=== PATIENT | male | born 1945 | race Caucasian/White ===

== ENCOUNTER 2020-10-05 20:12 | Emergency (ER) | payer MEDICARE, OTHER, SELFPAY ==
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
[2020-10-05 20:35] VITALS: BP 144/92; PULSE 81; RESP 16; TEMP 35.9; O2SAT 96
[2020-10-05] MEDS: ACETAMINOPHEN 325 MG TABLET 650 MG PO (21:15)
[2020-10-05] MEDS: TETANUS,DIPHTHERIA,AC PERTUSSIS ADULT (0.5 ML) BOOSTRIX IM (21:17)
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
[2020-10-05 22:15] VITALS: BP 158/86; PULSE 67; RESP 18; O2SAT 99
== END 2020-10-05 22:50 | disposition home or self-care (01) ==
PROVIDERS: Emergency Provider Emergency Medicine
DX: S01.81XA Laceration without foreign body of other part of head, initial encounter (principal); S16.1XXA Strain of muscle, fascia and tendon at neck level, initial encounter; Y04.2XXA Assault by strike against or bumped into by another person, initial encounter; Z23 Encounter for immunization
CPT/HCPCS: 12011; 70450; 72125; 90471; 90715; 99284; A9270; L0140

== ENCOUNTER 2022-09-05 09:20 | Emergency (ER) | payer MEDICARE, OTHER, SELFPAY ==
[2022-09-05] VITALS (24 sets, daily range): BP systolic 124–149; BP diastolic 78–97; PULSE 57–84; RESP 10–21; TEMP 36.6–36.8; O2SAT 93–100
--- NOTE | ~2022-09-05 | XR_ITS ---
EXAMINATION: XR chest 2V DATE: 09/05/2022 09:55 INDICATION: Chest tingling. TECHNIQUE: Frontal and lateral views of the chest were obtained. COMPARISON: Chest 2 views 11/06/2018 FINDINGS: There is worsened chronic elevation of right hemidiaphragm. There is mild atelectasis at ri ght lung base. No pleural effusion or pneumothorax. The heart size is normal. IMPRESSION: 1. Worsened chronic elevation of right hemidiaphragm with mild atelectasis at right lung base. Reviewed, dictated and finalized at location A. IMPRESSION: 1. Worsened chronic elevation of right hemidiaphragm with mild atelectasis at r ight lung base.
--- NOTE | 2022-09-05 09:24 | ECG_ITS ---
Measurements Intervals [place] Rate: 69 P: 41 TN: 147 QRS: 2 QRSD: 91 T: 29 QT: 380 QTc: 408 Interpretive Statements SINUS RHYTHM NORMAL ECG NO PREVIOUS ECG AVAILABLE FOR COMPARISON Electronically Signed On 09-05-2022 9:31:55 CDT by Cali Lopes D.O.
[2022-09-05 09:40] LABS: Basophils Percent Auto 0.9 % (0.2-1.2); Eosinophils Absolute Auto 0.1 K/mm3 (0-0.3); Eosinophils Percent Auto 2.9 % (0-4.4); Hematocrit 43.1 % (42.0-52.0); Hemoglobin 14.8 g/dL (14.0-18.0); Immature Granulocyte Absolute 0.01 K/mm3 (0.00-0.031); Immature Granulocyte Percent A 0.3 % (0-0.5); Lymphocytes Absolute Auto 0.93 K/mm3 (0.9-3.2); Mean Corpuscular HGB Conc 34.3 g/dl (32-36); Mean Corpuscular Hemoglobin 30.6 pg (26-34); Mean Platelet Volume 8.7 fl (7.4-10.4); Monocytes Absolute Auto 0.4 K/mm3 (0.1-0.6); Monocytes Percent Auto 10.7 % (2.6-8.5); Neutrophils Percent Auto 58.2 % (45.5-73.1); Platelet Count Result 135 k/mm3 (150-375); Red Blood Count 4.84 M/mm3 (4.6-6.20); White Blood Count 3.5 K/mm3 (4.5-10.0)
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
[2022-09-05 09:51] LABS: INR 1.1; Prothrombin Time 13.5 Seconds (11.1-14.7)
[2022-09-05 09:52] LABS: Partial Thromboplastin Time 26.2 SECONDS (22.3-36.8)
[2022-09-05 09:53] LABS: Alanine Aminotransferase 22 U/L (6-50); Albumin Level 4.5 g/dL (3.5-5.1); Alkaline Phosphatase 58 U/L (38-126); Anion Gap 12 mmol/L (8-16); Aspartate Amino Transferase 33 U/L (17-59); Bilirubin,Total 0.7 mg/dL (0.2-1.3); Blood Urea Nitrogen 21 mg/dL (9-20); Calcium 8.7 mg/dL (8.4-10.2); Carbon Dioxide 28 mmol/L (22-30); Chloride 97 mmol/L (98-107); Estimated CRCL calculation 43 ml/min; Estimated Glomerular Filt Rate 54; Glucose 100 mg/dL (65-110); Lipase 148 U/L (23-300); Sodium 137 mmol/L (137-145)
[2022-09-05 10:05] LABS: Troponin I < 0.012 ng/mL (0.000-0.034)
[2022-09-05 12:58] LABS: Troponin I < 0.012 ng/mL (0.000-0.034)
--- NOTE | 2022-09-05 13:12 | ECG_ITS ---
Measurements Intervals [place] Rate: 60 P: 57 DE: 154 QRS: 47 QRSD: 93 T: 56 QT: 399 QTc: 400 Interpretive Statements SINUS RHYTHM NORMAL ECG COMPARED TO ECG 09/05/2022 09:29:10 NO SIGNIFICANT CHANGES Electronically Signed On 09-05-2022 15:13:51 CDT by Cali Lopes D.O.
[2022-09-05 16:00] LABS: Troponin I < 0.012 ng/mL (0.000-0.034)
== END 2022-09-05 16:09 | disposition home or self-care (01) ==
PROVIDERS: Emergency Provider Emergency Medicine
DX: R20.2 Paresthesia of skin (principal); R07.89 Other chest pain; I10 Essential (primary) hypertension; E78.5 Hyperlipidemia, unspecified; K21.9 Gastro-esophageal reflux disease without esophagitis
CPT/HCPCS: 36415; 71046; 80053; 83690; 84484; 85025; 85610; 85730; 93005; 99284

== ENCOUNTER 2023-09-10 11:45 | Emergency (ER) | payer MEDICARE, OTHER, SELFPAY ==
[2023-09-10 11:55] VITALS: BP 149/84; PULSE 84; RESP 18; TEMP 36.6; O2SAT 96
--- NOTE | 2023-09-10 12:18 | ED.EAR ---
HPI - Ear Problem General Chief complaint: Ear Stated complaint: rt ear discomfort Time Seen by Provider: 09/10/23 12:03 Source: patient and RN notes reviewed Mode of arrival: ambulatory Limitations: no limitations History of Present Illness HPI Narrative: Patient presents today complaining of right ear clogging times 10 days. Denies any pain or drainage. He has tried peroxide and flushing of the ear without success. Related Data Home Medications Medication Instructions Recorded Confirmed aspirin 81 mg tablet,delayed 81 mg PO DAILY 09/10/23 09/10/23 release atorvastatin 40 mg tablet 40 mg PO DAILY 09/10/23 09/10/23 cetirizine 10 mg tablet 10 mg PO DAILY 09/10/23 09/10/23 hydrochlorothiazide 12.5 mg tablet 12.5 mg PO DAILY 09/10/23 09/10/23 lisinopril 5 mg tablet 5 mg PO DAILY 09/10/23 09/10/23 montelukast 10 mg tablet 10 mg PO HS 09/10/23 09/10/23 omeprazole 20 mg capsule,delayed 20 mg PO DAILY 09/10/23 09/10/23 release terbinafine HCl 250 mg tablet 250 mg PO DAILY 09/10/23 09/10/23 Allergies Allergy/AdvReac Type Severity Reaction Status Date / Time No Known Allergies Allergy Verified 09/10/23 11:47 Review of Systems Review of Systems: CONSTITUTIONAL: Denies body aches, fever, chills, or sweats. EYES: Denies visual changes, redness, or discharge. ENT: Denies rhinorrhea, congestion, sore throat, or otalgia.+ right ear clogging and muffled hearing CARDIOVASCULAR: Denies chest pain, palpitations, or edema. RESPIRATORY: Denies cough or dyspnea. GASTROINTESTINAL: Denies abdominal pain, nausea, vomiting, or diarrhea. GENITOURINARY: Denies dysuria or hematuria. SKIN: Denies rash, itching, or wounds. MUSCULOSKELETAL: Denies back pain, joint pain, or myalgia. NEUROLOGIC: Denies headache, numbness, tingling, or weakness. PSYCH: Denies depression or anxiety. [facility] Past Medical History Medical History GERD (gastroesophageal reflux disease) HLD (hyperlipidemia) HTN (hypertension) Surgical History Surgical History History of surgical removal of skin lesion Social History Social History Smoking status: Never smoker Gender identity (if verbalized by the patient): Male Comments At time of signature, I have reviewed and agree with nursing past medical, surgical, social and family history unless otherwise noted. Please see nursing chart for further information. There is no relevant family history pertinent to the presenting complaint Exam Narrative: GENERAL: Well-appearing, well-nourished, and in no acute distress. HEAD: Normocephalic, atraumatic. EYES: EOMI. No redness or drainage. Conjunctivae normal. ENT: Mucous membranes pink and moist. Nares clear. No rhinorrhea. Right ear cerumen impaction. NECK: Normal AROM. CHEST: No respiratory distress. EXTREMITIES: Normal range of motion. No edema. SKIN: Warm, dry, no rash. Capillary refill normal. Normal skin turgor. NEURO: No focal deficits. Alert and oriented x3. Gait steady. PSYCH: Normal affect. No signs of depression or anxiety. Course Course Level of Care: Express Care Visit Vital Signs Vital signs: Vital Signs Temperature 97.9 F 09/10/23 11:55 Pulse Rate 84 09/10/23 11:55 Respiratory Rate 18 09/10/23 11:55 Blood Pressure 149/84 H 09/10/23 11:55 Pulse Oximetry 96 09/10/23 11:55 Oxygen Delivery Room Air 09/10/23 11:55 Temperature 97.9 F 09/10/23 11:55 Pulse Rate 84 09/10/23 11:55 Respiratory Rate 18 09/10/23 11:55 Blood Pressure 149/84 H 09/10/23 11:55 Pulse Oximetry 96 09/10/23 11:55 Oxygen Delivery Room Air 09/10/23 11:55 Reviewed Procedures Ear Wax Removal Right Ear: Ear Wax Removal Date: 09/10/23 Ear Wax Removal Time: 12:20 Results: Re-examined: removal reattempted (Unsuc
== END 2023-09-10 12:26 | disposition home or self-care (01) ==
PROVIDERS: Emergency Provider Nurse Practitioner
DX: H61.21 Impacted cerumen, right ear (principal); K21.9 Gastro-esophageal reflux disease without esophagitis; E78.5 Hyperlipidemia, unspecified; I10 Essential (primary) hypertension; Z79.82 Long term (current) use of aspirin
CPT/HCPCS: 69209; 99212; A9270; G0463

== ENCOUNTER → 2023-09-10 13:48 | Outpatient (CLI) | payer MEDICARE, OTHER, SELFPAY ==
--- NOTE | ~2023-09-10 | MR_ITS ---
MRI of the left knee Clinical history: Pain Technique: Coronal proton density and proton density-weighted images, sagittal proton-density and T2 fat-sat images, and axial proton-density fat-saturated images were acquired. Findings: Anterior and posterior cruciate ligament are intact. Medial collateral ligament and the lat eral collateral ligament complex are intact. Popliteus tendon is intact. There is horizontal/oblique tear of the posterior horn medial meniscus with additional probable verti catie tear component of the peripheral posterior horn. No definite lateral meniscal tear seen. Articular cartilage is well preserved throughout the knee. Bone marrow signals are unremarkable. Extensor mechanism is intact. No significant joint effusion or Loredo's cyst. Impression: Horizontal and vertical tears involving the posterior horn of the medial meniscus. Reviewed, dictated and finalized at location M. DRIER Impression: Horizontal and vertical tears involving the posterior horn of the medial menisc us.
== END ==
DX: S83.242A Other tear of medial meniscus, current injury, left knee, initial encounter (principal); X58.XXXA Exposure to other specified factors, initial encounter
CPT/HCPCS: 73721

== ENCOUNTER 2024-11-04 12:05 | Emergency (ER) | payer MEDICARE, OTHER, SELFPAY ==
--- NOTE | ~2024-11-04 | XR_ITS ---
Clinical Indication: Cough, fever PA and lateral views of the chest: Comparison: 09/05/2022 Findings: There is probable right basilar atelectasis. There is hazy left basilar airspace disease.. Cardiomediastinal silhouette is within normal limits. Bones and soft tissues are unremarkable. Impression: Hazy left basilar airspace disease, nonspecific. Probable right basilar atelectasis or scarring. Reviewed, dictated and finalized at location . [facility] Impression: Hazy left basilar airspace disease, nonspecific. Probable right basilar atelectasis or scarring.
[2024-11-04 12:25] VITALS: BP 134/82; PULSE 90; RESP 18; TEMP 37.1; O2SAT 98
--- NOTE | 2024-11-04 12:54 | ED.URI ---
HPI - URI/Sore Throat General Chief Complaint: Upper Respiratory Infection Stated Complaint: flu like symptoms Time Seen by Provider: 11/04/24 12:59 Source: patient, RN notes reviewed and old records reviewed Mode of arrival: ambulatory Limitations: no limitations History of Present Illness HPI Narrative: 79-year-old male presents to the [facility] with complaints flu-like symptoms. Patient reports fevers, chills for over 1 week. Symptoms are worse at night, dry cough at night. In the morning he states he feels okay, has had headaches on and off. Has been taking aspirin, Tylenol as well as NyQuil for his cough. Treatments prior to arrival: acetaminophen, aspirin and cold medicine Related Data Home Medications ?Medication ?Instructions ?Recorded ?Confirmed ?Last Taken ?Type aspirin 81 mg tablet,delayed 81 mg PO DAILY 09/10/23 11/04/24 Unknown History release cetirizine 10 mg tablet 10 mg PO DAILY 09/10/23 11/04/24 Unknown History hydrochlorothiazide 12.5 mg tablet 12.5 mg PO DAILY 09/10/23 11/04/24 Unknown History lisinopril 5 mg tablet 5 mg PO DAILY 09/10/23 11/04/24 Unknown History montelukast 10 mg tablet 10 mg PO HS 09/10/23 11/04/24 Unknown History omeprazole 20 mg capsule,delayed 20 mg PO DAILY 09/10/23 11/04/24 Unknown History release terbinafine HCl 250 mg tablet 250 mg PO DAILY 09/10/23 11/04/24 Unknown History amitriptyline 10 mg tablet mg 11/04/24 Unknown History fluticasone propionate 50 intranasal 11/04/24 Unknown History mcg/actuation nasal spray,suspension lisinopril 20 mg tablet mg 11/04/24 Unknown History rosuvastatin 20 mg tablet mg 11/04/24 Unknown History Allergies Allergy/AdvReac Type Severity Reaction Status Date / Time No Known Allergies Allergy Verified 11/04/24 12:57 Review of Systems Review of Systems: All systems reviewed & are unremarkable except as noted in HPI and below Constitutional: Constitutional: Reports as per HPI, Reports chills and Reports fever(s) ENT: Reports system reviewed and no additional complaints, except as documented Cardiovascular: Cardiovascular: Reports no additional cardiovascular complaints, Denies chest pain and Denies dyspnea Respiratory: Respiratory: Reports as per HPI, Denies chest congestion, Reports cough and Denies dyspnea Musculoskeletal: Musculoskeletal: Reports no additional musculoskeletal complaints Integumentary/Breasts: Skin/Breast: Reports system reviewed and no additional complaints, except as docu PMFSH Past Medical History Medical History GERD (gastroesophageal reflux disease) HTN (hypertension) HLD (hyperlipidemia) Surgical History Surgical History History of surgical removal of skin lesion Social History Social History Smoking status: Never smoker Gender identity (if verbalized by the patient): Male Comments At the time of my signature, I reviewed and agree with the nursing past medical, surgical, social, and family history. There is no relevant family history pertinent to the patient complaint. Exam Const: General: cooperative, no acute distress, well developed, alert, uncomfortable and well nourished Nutritional Appearance: well nourished Orientation/consciousness: patient oriented x3 Limitations: no limitations HENMT: Head: normal to inspection Ears: hearing grossly normal bilaterally, external ears normal, TM's normal bilaterally, EAC's normal, mastoids normal and no periauricular adenopathy Mouth: Yes Normal oral and palatal mucosa present, Yes lip normal, Yes tongue normal and Yes moist mucous membranes Throat: posterior oropharynx normal, uvula midline and no uvular edema Eyes: General: appearance normal, both eyes and all related structures Alignment and Position: alignment normal Neck: Neck: normal visual inspection, full ROM, no lymphadenopathy and no meningeal signs Chest: Chest palpation & inspection: normal inspection of the chest Resp: Effort & Inspection: normal respiratory effort and able to speak in complete sentences Auscultation: clear to auscultation bilaterally, no crackles, no rales, no rhonchi, no wheezes and diminished lung sounds on the right in the lower lung mota and on the left in the lower lung mota Cardio: Rate: regular rate Skin: General skin exam: normal color and no rashes or lesions noted Neuro: General: patient oriented x3, gait normal, moves all extremities and no meningeal signs Cognition (Neuro): normal cognition Speech: normal speech Gait exam (Neuro): Normal gait present Extrem: General: normal to inspection, full ROM, capillary refill normal and normal gait Psych: Appearance: grossly normal and well kempt Mental Status: mental status grossly normal Speech and movement: Normal speech and movement present and Clear speech present Affect: normal affect Attitude: cooperative Course Course Level of Care: Express Care Visit Vital Signs Vital signs: Vital Signs Temperature 98.7 F 11/04/24 12:25 Pulse Rate 90 11/04/24 12:25 Respiratory Rate 18 11/04/24 12:25 Blood Pressure 134/82 11/04/24 12:25 Pulse Oximetry 98 11/04/24 12:25 Oxygen Delivery Room Air 11/04/24 12:25 Temperature 98.7 F 11/04/24 12:25 Pulse Rate 90 11/04/24 12:25 Respiratory Rate 18 11/04/24 12:25 Blood Pressure 134/82 11/04/24 12:25 Pulse Oximetry 98 11/04/24 12:25 Oxygen Delivery Room Air 11/04/24 12:25 Reviewed MDM - URI/Sore Throat MDM Narrative Medical decision making narrative: Patient sitting in exam room. Nontoxic, vitals stable. Flu and COVID are negative, x-ray with some acute findings, will treat for pneumonia encourage patient to follow-up with primary care provider for further evaluation within 1 week and a repeat chest x-ray. Patient appropriate for outpatient treatment follow-up Discharge instructions reviewed with patient, as well as provided in writing per nursing staff. The instructions also include specific and strict return/GO TO THE ER as well as f/u information. All questions have been answered, and the patient deny any further questions with discharge and discharge plan. Some parts of this dictation were generated by voice recognition software and may contain typographical and/or grammatical inaccuracies. Differential Diagnosis Differential diagnosis: Likely upper respiratory infection, sinusitis, viral infection, bronchitis and other (Pneumonia) Lab Data Labs: Lab Results 11/04/24 Range/Units 13:39 POC Influenza A Ag Negative (Negative) POC Influenza B Ag Negative (Negative) POC SARS CoV-2 Ag Negative (Negative) Reviewed Imaging Data Radiologist's impression: Clinical Indication: Cough, fever PA and lateral views of the chest: Comparison: 09/05/2022 Findings: There is probable right basilar atelectasis. There is hazy left basilar airspace disease.. Cardiomediastinal silhouette is within normal limits. Bones and soft tissues are unremarkable. Impression: Hazy left basilar airspace disease, nonspecific. Probable right basilar atelectasis or scarring. Critical Care Time Critical Care Time Critical Care Time: No Discharge Plan Discharge Clinical Impression: Bronchitis, Atypical pneumonia, Atelectasis Patient Disposition: Home, Self-Care Condition: Stable Instructions: Antibiotic Form, Acute Bronchitis (ED), Atelectasis (ED) Additional Instructions: Your rapid COVID test were negative Your rapid flu test was negative It is very important to treat your symptoms. Drink plenty of water, Gatorade, Pedialyte, ice pops or Jell-O. -Alternate Tylenol and Motrin per package directions for fever or pain. You can alternate every 4 hours -Antihistamine medication such as Zyrtec/Claritin/Valerie during the day can help improve symptoms. -doing daily nasal irrigations can help relieve pressure your sinuses. Things like a Neti pot -Use Flonase twice a day for 5 days then daily to help reduce the inflammation and dry up your sinuses. -You can also use Coricidin HBP. Be sure to drink plenty of water with this medication at least 8 ounces with every dose and it is important to drink 8 to 10 glasses of water per day. Water is a natural decongestant -Frequent hand washing or hand spa director is one of the best ways to prevent spread of infection. -Using a vaporizer or humidifier at night will also help thin secretions and help with coughing up phlegm. -Follow up with primary care provider in 7-10 days if condition is not improving It is recommended that you get a repeat chest x-ray once the treatment with antibiotics is done. Please do this with your primary care provider and call [phone] - For new or worsening symptoms go directly to the nearest ER Patient Language: Belgian Prescriptions: New doxycycline monohydrate 100 mg tablet 100 mg PO BID Qty: 14 0RF No Action lisinopril 20 mg tablet amitriptyline 10 mg tablet fluticasone propionate 50 mcg/actuation spray,suspension INTRANASAL rosuvastatin 20 mg tablet cetirizine 10 mg tablet 10 mg PO DAILY aspirin 81 mg tablet,delayed release (DR/EC) 81 mg PO DAILY terbinafine HCl 250 mg tablet 250 mg PO DAILY omeprazole 20 mg capsule,delayed release(DR/EC) 20 mg PO DAILY montelukast 10 mg tablet 10 mg PO HS lisinopril 5 mg tablet 5 mg PO DAILY hydrochlorothiazide 12.5 mg tablet 12.5 mg PO DAILY Follow-up/Referrals: UNKNOWN,DOCTOR [Primary Care Provider] - Stand Alone Forms: Work/School Release IP Time of Disposition: 13:40
[2024-11-04 13:42] LABS: EDCOVIDSCREEN Negative (Negative); EDINFLUASCREEN Negative (Negative); EDINFLUBSCREEN Negative (Negative)
== END 2024-11-04 13:49 | disposition home or self-care (01) ==
PROVIDERS: Emergency Provider Nurse Practitioner
DX: J40 Bronchitis, not specified as acute or chronic (principal); J18.9 Pneumonia, unspecified organism; J98.11 Atelectasis; Z20.822 Contact with and (suspected) exposure to COVID-19; I10 Essential (primary) hypertension; E78.5 Hyperlipidemia, unspecified; K21.9 Gastro-esophageal reflux disease without esophagitis; Z79.82 Long term (current) use of aspirin
CPT/HCPCS: 71046; 87426; 87804; 99213; G0463